=== PATIENT | female | born 1945 | race Caucasian/White ===

== ENCOUNTER 2018-05-13 15:00 | Inpatient (IN) | payer MEDICARE, BC ==
[~2018-05-13] VITALS: Ht 167.6 cm; Wt 79.1 kg
[2018-05-13] MEDS ORDERED: [UNRECOGNIZED DRUG - OTHER] (15:02)
[2018-05-13] MEDS ORDERED: VITS (15:02)
[2018-05-13 15:53] LABS: BASOPHILS # (AUTO) 0.04 x10^3/uL (0-0.1); BASOPHILS % (AUTO) 0 % (0-1); EOSINOPHILS # (AUTO) 0.04 x10^3/uL (0-0.4); EOSINOPHILS % (AUTO) 0 % (1-7); LYMPHOCYTES # (AUTO) 1.41 x10^3/uL (1-3.4); LYMPHOCYTES % (AUTO) 15 % (22-44); MD NO; MEAN CORPUSCULAR HEMOGLOBIN 29.6 pg (27.0-34.8); MEAN CORPUSCULAR HGB CONC 33.3 g/dL (32.4-35.8); MEAN PLATELET VOLUME 8.5 fL (7.4-10.4); MONOCYTES # (AUTO) 0.61 x10^3/uL (0.2-0.8); MONOCYTES % (AUTO) 7 % (2-9); NEUTROPHILS # (AUTO) 7.17 x10^3/uL (1.8-6.8); NEUTROPHILS % (AUTO) 77 % (42-75); PLATELET COUNT 332 x10^3/uL (130-400); RED BLOOD COUNT 4.03 x10^6/uL (3.82-5.3); RED CELL DISTRIBUTION WIDTH 16.8 % (9.6-15.2)
[2018-05-13 15:58] LABS: ALBUMIN 3.6 g/dL (3.4-5.0); ANION GAP 9 mmol/L (5-15); CALCIUM 9.3 mg/dL (8.5-10.1); CHLORIDE 107 mmol/L (98-107)
[2018-05-13 16:01] LABS: ALANINE AMINOTRANSFERASE 18 U/L (12-78); ALKALINE PHOSPHATASE 259 U/L (45-117); BILIRUBIN,TOTAL 0.4 mg/dL (0.2-1.0)
[2018-05-13 16:09] LABS: INTERNATIONAL NORMALIZED RATIO 0.97 (0.93-1.1); PROTHROMBIN TIME 10.3 Seconds (9.6-11.5)
[2018-05-15 06:11] VITALS: BP 138/86
[2018-05-15] MEDS ORDERED: FENTANYL PF 250 MCG/5ML ONE ×2 (07:19→10:00)
[2018-05-15] MEDS ORDERED: MIDAZOLAM 1 MG/ML, 2ML ONE (07:19)
[2018-05-15] MEDS ORDERED: SCOPOLAMINE PATCH, 1.5MG PATCH.TD72 TD ONE ×2 (07:26)
[2018-05-15] MEDS ORDERED: GABAPENTIN 300 MG CAPSULE ONE ×2 (07:27)
[2018-05-15] MEDS ORDERED: EPINEPHRINE 1 MG/ML, 1ML ONE (07:28)
[2018-05-15] MEDS ORDERED: METHYLENE BLUE 10 MG/ML 10ML ONE (07:28)
[2018-05-15] MEDS ORDERED: INDIGO CARMINE 0.8%, 5ML ONE (07:28)
[2018-05-15] MEDS ORDERED: DEXMEDETOMIDINE 200 MCG/2 ML ONE ×2 (07:44→07:54)
[2018-05-15] MEDS ORDERED: CEFOTETAN 2 GM ONE (07:54)
[2018-05-15] MEDS ORDERED: ROCURONIUM 10MG/ML,5ML ONE (09:25)
[2018-05-15] MEDS ORDERED: LIDOCAINE-MPF 2% ,5ML ONE ×2 (09:25→10:29)
[2018-05-15] MEDS ORDERED: DEXAMETHASONE 4 MG/ML, 1ML ONE (09:25)
[2018-05-15] MEDS ORDERED: PROPOFOL 10 MG/ML, 20ML ONE (09:25)
[2018-05-15] MEDS ORDERED: ONDANSETRON 2MG/ML, 2ML ONE (09:25)
[2018-05-15] MEDS ORDERED: PHENYLEPHRINE 10 MG/ML ONE (09:25)
[2018-05-15] MEDS ORDERED: GLYCOPYRROLATE 0.4 MG/2 ML, 2ML ONE (10:54)
[2018-05-15] MEDS ORDERED: NEOSTIGMINE 1 MG/ML, 10ML ONE (10:54)
[2018-05-15] MEDS ORDERED: hydrALAzine 20 MG/ML, 1ML IV PRN (11:30)
[2018-05-15] MEDS ORDERED: OXYcodone 5 MG/5 ML ORAL.SOL UDC PO PRN (11:30)
[2018-05-15] MEDS ORDERED: ALBUMIN HUMAN 5% 250 ML IV ONE (11:30)
[2018-05-15] MEDS ORDERED: ACETAMINOPHEN 325 MG TABLET PO PRN (11:30)
[2018-05-15] MEDS ORDERED: HALOPERIDOL 5 MG/ML IV PRN (11:30)
[2018-05-15] MEDS ORDERED: HYDROmorphone 1 MG/ML, 1ML IV PRN (11:30)
[2018-05-15] MEDS ORDERED: LABETALOL 5MG/ML, 20ML IV PRN (11:30)
[2018-05-15] MEDS ORDERED: PROMETHAZINE 25 MG/ML, 1ML IV PRN (11:30)
[2018-05-15] MEDS ORDERED: FENTANYL PF 100 MCG/2ML IV PRN (11:30)
[2018-05-15] MEDS ORDERED: MEPERIDINE/PF 25MG/0.5ML IVPush PRN (11:30)
[2018-05-15] MEDS ORDERED: ALBUMIN HUMAN 5% 500 ML ONE (12:09)
[2018-05-15 12:14] LABS: MEAN CORPUSCULAR HEMOGLOBIN 29.7 pg (27.0-34.8); MEAN CORPUSCULAR VOLUME 90.1 fL (80-100); MEAN PLATELET VOLUME 8.1 fL (7.4-10.4); PLATELET COUNT 267 x10^3/uL (130-400); RED BLOOD COUNT 3.63 x10^6/uL (3.82-5.3); RED CELL DISTRIBUTION WIDTH 16.6 % (9.6-15.2)
[2018-05-15 12:22] LABS: INTERNATIONAL NORMALIZED RATIO 1.13 (0.93-1.1); PROTHROMBIN TIME 11.9 Seconds (9.6-11.5)
[2018-05-15] MEDS ORDERED: ALBUMIN HUMAN 25% 50 ML ONE (12:24)
[2018-05-15 12:25] LABS: ALBUMIN 2.4 g/dL (3.4-5.0); ANION GAP 8 mmol/L (5-15); CALCIUM 8.2 mg/dL (8.5-10.1); CHLORIDE 107 mmol/L (98-107)
[2018-05-15 12:28] LABS: ALANINE AMINOTRANSFERASE 23 U/L (12-78); ALKALINE PHOSPHATASE 180 U/L (45-117); BILIRUBIN,TOTAL 0.5 mg/dL (0.2-1.0); CREATININE 0.82 mg/dL (0.55-1.02); TOTAL PROTEIN 4.9 g/dL (6.4-8.2)
[2018-05-15 12:51] LABS: MD YES
[2018-05-15 12:57] LABS: <PLATELET ESTIMATE> ADEQUATE; <PLT MORPHOLOGY> NORMAL PLT MORPH; <RBC MORPHOLOGY> NORMAL; EOS#(MANUAL) 0.21 x10^3/uL (0.0-0.4); EOS% (MANUAL) 2 % (1-7); LYMPH#(MANUAL) 0.43 x10^3/uL (1-3.4); LYMPHS% (MANUAL) 4 % (22-44); MONOS#(MANUAL) 1.07 x10^3/uL (0.3-2.7); MONOS% (MANUAL) 10 % (2-9); SEG#(MANUAL) 8.99 x10^3/uL (1.8-6.8); SEGS% (MANUAL) 84 % (42-75)
[2018-05-15 13:30] VITALS: BP 98/64
[2018-05-15] MEDS ORDERED: ONDANSETRON 2MG/ML, 2ML IVPush PRN (14:00)
[2018-05-15] MEDS ORDERED: SODIUM CHLORIDE 0.9%, 500ML IVBOLUS PRN (14:00)
[2018-05-15] MEDS ORDERED: POTASSIUM CHLORIDE 20 MEQ in D5%-0.45% NACL 1,000 ML IV SCH (14:00)
[2018-05-15] MEDS: FAMOTIDINE 20 MG TABLET PO SCH (15:00)
[2018-05-15] MEDS: FAMOTIDINE 20 MG/2 ML IV SCH (16:09)
[2018-05-15 20:51] VITALS: BP 128/78
[2018-05-16] MEDS: POTASSIUM CHLORIDE 20 MEQ in D5%-0.45% NACL 1,000 ML IV SCH ×3 (00:22→12:37)
[2018-05-16] MEDS: ALBUMIN HUMAN 5% 500 ML IV SCH ×2 (00:22→12:36)
[2018-05-16 00:40] VITALS: BP 117/73
[2018-05-16] MEDS: FAMOTIDINE 20 MG TABLET PO SCH ×2 (03:00→14:34)
[2018-05-16] MEDS: FAMOTIDINE 20 MG/2 ML IV SCH ×2 (03:01→14:45)
[2018-05-16 04:59] VITALS: BP 121/77
[2018-05-16 05:24] LABS: CHLORIDE 106 mmol/L (98-107)
[2018-05-16 05:31] LABS: ALBUMIN 3.1 g/dL (3.4-5.0); ANION GAP 10 mmol/L (5-15); CALCIUM 7.5 mg/dL (8.5-10.1); CREATININE 0.88 mg/dL (0.55-1.02)
[2018-05-16 06:05] LABS: BASOPHILS # (AUTO) 0.03 x10^3/uL (0-0.1); BASOPHILS % (AUTO) 0 % (0-1); EOSINOPHILS % (AUTO) 0 % (1-7); LYMPHOCYTES # (AUTO) 0.89 x10^3/uL (1-3.4); LYMPHOCYTES % (AUTO) 9 % (22-44); MD NO; MEAN CORPUSCULAR HEMOGLOBIN 30.6 pg (27.0-34.8); MEAN PLATELET VOLUME 8.7 fL (7.4-10.4); MONOCYTES # (AUTO) 0.73 x10^3/uL (0.2-0.8); MONOCYTES % (AUTO) 7 % (2-9); NEUTROPHILS # (AUTO) 8.52 x10^3/uL (1.8-6.8); NEUTROPHILS % (AUTO) 84 % (42-75); PLATELET COUNT 275 x10^3/uL (130-400); RED BLOOD COUNT 3.18 x10^6/uL (3.82-5.3); RED CELL DISTRIBUTION WIDTH 16.4 % (9.6-15.2)
[2018-05-16 07:25] VITALS: BP 128/77
[2018-05-16 12:39] VITALS: BP 109/69
[2018-05-16] MEDS ORDERED: POTASSIUM CHLORIDE 20 MEQ in D5%-0.45% NACL 1,000 ML IV SCH (16:00)
[2018-05-16 20:20] VITALS: BP 123/73
[2018-05-16] MEDS: D5%-0.45NACL+KCL 20MEQ 1,000 ML IV SCH (21:56)
[2018-05-17 00:17] VITALS: BP 116/68
[2018-05-17 01:01] LABS: MEAN CORPUSCULAR HEMOGLOBIN 30.2 pg (27.0-34.8); MEAN CORPUSCULAR HGB CONC 33.6 g/dL (32.4-35.8); MEAN CORPUSCULAR VOLUME 89.8 fL (80-100); MEAN PLATELET VOLUME 7.7 fL (7.4-10.4); PLATELET COUNT 191 x10^3/uL (130-400); RED CELL DISTRIBUTION WIDTH 16.5 % (9.6-15.2)
[2018-05-17 01:51] LABS: BASOPHILS % (AUTO) 0 % (0-1); EOSINOPHILS # (AUTO) 0.01 x10^3/uL (0-0.4); EOSINOPHILS % (AUTO) 0 % (1-7); LYMPHOCYTES # (AUTO) 0.75 x10^3/uL (1-3.4); LYMPHOCYTES % (AUTO) 8 % (22-44); MD SCAN; MONOCYTES # (AUTO) 0.58 x10^3/uL (0.2-0.8); MONOCYTES % (AUTO) 6 % (2-9); NEUTROPHILS # (AUTO) 8.29 x10^3/uL (1.8-6.8); NEUTROPHILS % (AUTO) 86 % (42-75)
[2018-05-17] MEDS: FAMOTIDINE 20 MG TABLET PO SCH ×2 (03:00→15:00)
[2018-05-17] MEDS: FAMOTIDINE 20 MG/2 ML IV SCH ×2 (03:26→15:25)
[2018-05-17 04:18] VITALS: BP 115/67
[2018-05-17 05:58] LABS: MEAN CORPUSCULAR HGB CONC 33.2 g/dL (32.4-35.8); MEAN CORPUSCULAR VOLUME 90.4 fL (80-100); MEAN PLATELET VOLUME 8.2 fL (7.4-10.4); PLATELET COUNT 186 x10^3/uL (130-400); RED BLOOD COUNT 2.48 x10^6/uL (3.82-5.3); RED CELL DISTRIBUTION WIDTH 16.8 % (9.6-15.2)
[2018-05-17 06:00] LABS: CALCIUM 8.4 mg/dL (8.5-10.1); CHLORIDE 106 mmol/L (98-107)
[2018-05-17 06:03] LABS: ANION GAP 5 mmol/L (5-15); CREATININE 0.63 mg/dL (0.55-1.02)
[2018-05-17] MEDS: D5%-0.45NACL+KCL 20MEQ 1,000 ML IV SCH ×3 (06:05→22:49)
[2018-05-17 06:40] LABS: BASOPHILS % (AUTO) 0 % (0-1); EOSINOPHILS # (AUTO) 0.03 x10^3/uL (0-0.4); EOSINOPHILS % (AUTO) 0 % (1-7); LYMPHOCYTES % (AUTO) 6 % (22-44); MD SCAN; MONOCYTES # (AUTO) 0.69 x10^3/uL (0.2-0.8); MONOCYTES % (AUTO) 7 % (2-9); NEUTROPHILS # (AUTO) 8.49 x10^3/uL (1.8-6.8); NEUTROPHILS % (AUTO) 87 % (42-75)
[2018-05-17 07:35] VITALS: BP 120/69
[2018-05-17 14:48] VITALS: BP 120/69
[2018-05-17 19:11] VITALS: BP 128/64
[2018-05-18 01:32] VITALS: BP 127/77
[2018-05-18] MEDS: FAMOTIDINE 20 MG TABLET PO SCH ×2 (03:00→14:19)
[2018-05-18] MEDS: FAMOTIDINE 20 MG/2 ML IV SCH ×2 (03:00→14:18)
[2018-05-18 05:23] LABS: BASOPHILS # (AUTO) 0.01 x10^3/uL (0-0.1); BASOPHILS % (AUTO) 0 % (0-1); EOSINOPHILS % (AUTO) 1 % (1-7); LYMPHOCYTES # (AUTO) 0.57 x10^3/uL (1-3.4); LYMPHOCYTES % (AUTO) 5 % (22-44); MD NO; MEAN CORPUSCULAR HEMOGLOBIN 29.3 pg (27.0-34.8); MEAN CORPUSCULAR HGB CONC 32.7 g/dL (32.4-35.8); MEAN CORPUSCULAR VOLUME 89.6 fL (80-100); MEAN PLATELET VOLUME 8.8 fL (7.4-10.4); MONOCYTES # (AUTO) 0.65 x10^3/uL (0.2-0.8); MONOCYTES % (AUTO) 6 % (2-9); NEUTROPHILS % (AUTO) 88 % (42-75); PLATELET COUNT 185 x10^3/uL (130-400); RED CELL DISTRIBUTION WIDTH 16.2 % (9.6-15.2)
[2018-05-18 05:43] LABS: CHLORIDE 104 mmol/L (98-107)
[2018-05-18 05:48] LABS: ANION GAP 6 mmol/L (5-15); CALCIUM 8.1 mg/dL (8.5-10.1); CREATININE 0.46 mg/dL (0.55-1.02)
[2018-05-18] MEDS: D5%-0.45NACL+KCL 20MEQ 1,000 ML IV SCH ×3 (06:42→23:24)
[2018-05-18 08:50] VITALS: BP 118/74
[2018-05-18 15:12] VITALS: BP 118/74
[2018-05-18 19:48] VITALS: BP 135/79
[2018-05-19 02:27] VITALS: BP 150/77
[2018-05-19] MEDS: FAMOTIDINE 20 MG TABLET PO SCH ×2 (03:00→15:00)
[2018-05-19] MEDS: FAMOTIDINE 20 MG/2 ML IV SCH ×2 (03:16→15:00)
[2018-05-19 04:50] LABS: MEAN CORPUSCULAR HEMOGLOBIN 29.7 pg (27.0-34.8); MEAN CORPUSCULAR HGB CONC 33.2 g/dL (32.4-35.8); MEAN CORPUSCULAR VOLUME 89.5 fL (80-100); MEAN PLATELET VOLUME 8.3 fL (7.4-10.4); PLATELET COUNT 233 x10^3/uL (130-400); RED BLOOD COUNT 2.48 x10^6/uL (3.82-5.3); RED CELL DISTRIBUTION WIDTH 16.3 % (9.6-15.2)
[2018-05-19 05:06] LABS: ALANINE AMINOTRANSFERASE 15 U/L (12-78); ALBUMIN 2.6 g/dL (3.4-5.0); ANION GAP 7 mmol/L (5-15); CALCIUM 7.8 mg/dL (8.5-10.1); CHLORIDE 104 mmol/L (98-107)
[2018-05-19 05:08] LABS: ALKALINE PHOSPHATASE 101 U/L (45-117); BILIRUBIN,TOTAL 0.9 mg/dL (0.2-1.0); TOTAL PROTEIN 5.2 g/dL (6.4-8.2)
[2018-05-19 05:24] LABS: BASOPHILS # (AUTO) 0.01 x10^3/uL (0-0.1); BASOPHILS % (AUTO) 0 % (0-1); EOSINOPHILS # (AUTO) 0.15 x10^3/uL (0-0.4); EOSINOPHILS % (AUTO) 2 % (1-7); LYMPHOCYTES # (AUTO) 0.49 x10^3/uL (1-3.4); LYMPHOCYTES % (AUTO) 6 % (22-44); MD SCAN; MONOCYTES # (AUTO) 0.61 x10^3/uL (0.2-0.8); MONOCYTES % (AUTO) 7 % (2-9); NEUTROPHILS # (AUTO) 7.33 x10^3/uL (1.8-6.8); NEUTROPHILS % (AUTO) 85 % (42-75)
[2018-05-19 07:26] VITALS: BP 122/75
[2018-05-19] MEDS: D5%-0.45NACL+KCL 20MEQ 1,000 ML IV SCH ×3 (11:33→23:43)
[2018-05-19 12:06] VITALS: BP 147/79
[2018-05-19] MEDS ORDERED: OXYcodone/APAP 7.5/325MG TABLET PO PRN (14:00)
[2018-05-19 20:12] VITALS: BP 137/64
[2018-05-20 01:13] VITALS: BP 134/66
[2018-05-20] MEDS: FAMOTIDINE 20 MG/2 ML IV SCH ×2 (03:00→14:15)
[2018-05-20] MEDS: FAMOTIDINE 20 MG TABLET PO SCH ×2 (03:00→14:23)
[2018-05-20 08:00] VITALS: BP 119/76
[2018-05-20] MEDS: D5%-0.45NACL+KCL 20MEQ 1,000 ML IV SCH (08:21)
[2018-05-20 09:29] LABS: BASOPHILS # (AUTO) 0.01 x10^3/uL (0-0.1); BASOPHILS % (AUTO) 0 % (0-1); EOSINOPHILS # (AUTO) 0.06 x10^3/uL (0-0.4); EOSINOPHILS % (AUTO) 1 % (1-7); LYMPHOCYTES # (AUTO) 0.74 x10^3/uL (1-3.4); LYMPHOCYTES % (AUTO) 8 % (22-44); MD NO; MEAN CORPUSCULAR HEMOGLOBIN 29.2 pg (27.0-34.8); MEAN CORPUSCULAR HGB CONC 32.9 g/dL (32.4-35.8); MEAN CORPUSCULAR VOLUME 88.7 fL (80-100); MONOCYTES # (AUTO) 0.68 x10^3/uL (0.2-0.8); MONOCYTES % (AUTO) 7 % (2-9); NEUTROPHILS # (AUTO) 8.16 x10^3/uL (1.8-6.8); NEUTROPHILS % (AUTO) 85 % (42-75); PLATELET COUNT 330 x10^3/uL (130-400); RED BLOOD COUNT 2.93 x10^6/uL (3.82-5.3); RED CELL DISTRIBUTION WIDTH 16.1 % (9.6-15.2)
[2018-05-20 09:39] LABS: ALANINE AMINOTRANSFERASE 26 U/L (12-78); ALBUMIN 2.5 g/dL (3.4-5.0); ANION GAP 6 mmol/L (5-15); CALCIUM 8.7 mg/dL (8.5-10.1); CHLORIDE 103 mmol/L (98-107); CREATININE 0.47 mg/dL (0.55-1.02)
[2018-05-20 09:41] LABS: ALKALINE PHOSPHATASE 131 U/L (45-117); BILIRUBIN,TOTAL 0.9 mg/dL (0.2-1.0); TOTAL PROTEIN 5.3 g/dL (6.4-8.2)
[2018-05-20] MEDS ORDERED: D5%-0.45NACL+KCL 20MEQ 1,000 ML IV SCH (10:30)
[2018-05-20] MEDS: CEPHALEXIN 500 MG CAPSULE PO SCH ×3 (11:18→20:58)
[2018-05-20 13:00] VITALS: BP 136/78
[2018-05-20 18:33] VITALS: BP 138/84
[2018-05-21 00:37] VITALS: BP 129/73
[2018-05-21] MEDS: FAMOTIDINE 20 MG TABLET PO SCH ×2 (03:16→15:05)
[2018-05-21 04:57] LABS: BASOPHILS # (AUTO) 0.01 x10^3/uL (0-0.1); BASOPHILS % (AUTO) 0 % (0-1); EOSINOPHILS # (AUTO) 0.22 x10^3/uL (0-0.4); EOSINOPHILS % (AUTO) 2 % (1-7); LYMPHOCYTES # (AUTO) 0.69 x10^3/uL (1-3.4); LYMPHOCYTES % (AUTO) 7 % (22-44); MD NO; MEAN CORPUSCULAR HEMOGLOBIN 29.3 pg (27.0-34.8); MEAN CORPUSCULAR HGB CONC 33.1 g/dL (32.4-35.8); MEAN CORPUSCULAR VOLUME 88.7 fL (80-100); MEAN PLATELET VOLUME 8.2 fL (7.4-10.4); MONOCYTES # (AUTO) 0.79 x10^3/uL (0.2-0.8); MONOCYTES % (AUTO) 7 % (2-9); NEUTROPHILS # (AUTO) 8.91 x10^3/uL (1.8-6.8); NEUTROPHILS % (AUTO) 84 % (42-75); PLATELET COUNT 341 x10^3/uL (130-400); RED BLOOD COUNT 2.92 x10^6/uL (3.82-5.3); RED CELL DISTRIBUTION WIDTH 16.2 % (9.6-15.2)
[2018-05-21] MEDS: CEPHALEXIN 500 MG CAPSULE PO SCH ×4 (06:00→20:37)
[2018-05-21 07:15] VITALS: BP 133/83
[2018-05-21 11:58] LABS: CLOSTRIDIUM DIFFICILE TOXIN POSITIVE (Negative)
[2018-05-21 12:00] LABS: CLOSTRIDIUM DIFFICILE ANTIGEN POSITIVE
[2018-05-21 13:30] VITALS: BP 127/76
[2018-05-21] MEDS: metroNIDAZOLE 500 MG TABLET PO SCH ×2 (15:02→23:09)
[2018-05-21 21:46] VITALS: BP 146/79
[2018-05-22 02:28] VITALS: BP 151/85
[2018-05-22] MEDS: FAMOTIDINE 20 MG TABLET PO SCH ×2 (03:18→15:36)
[2018-05-22 05:47] LABS: ANION GAP 9 mmol/L (5-15); CALCIUM 8.6 mg/dL (8.5-10.1); CHLORIDE 103 mmol/L (98-107)
[2018-05-22 06:20] LABS: BASOPHILS # (AUTO) 0.03 x10^3/uL (0-0.1); BASOPHILS % (AUTO) 0 % (0-1); EOSINOPHILS # (AUTO) 0.14 x10^3/uL (0-0.4); EOSINOPHILS % (AUTO) 1 % (1-7); LYMPHOCYTES % (AUTO) 7 % (22-44); MD NO; MEAN CORPUSCULAR HEMOGLOBIN 30.5 pg (27.0-34.8); MEAN CORPUSCULAR HGB CONC 34.3 g/dL (32.4-35.8); MEAN PLATELET VOLUME 7.9 fL (7.4-10.4); MONOCYTES # (AUTO) 1.11 x10^3/uL (0.2-0.8); MONOCYTES % (AUTO) 8 % (2-9); NEUTROPHILS # (AUTO) 12.21 x10^3/uL (1.8-6.8); NEUTROPHILS % (AUTO) 84 % (42-75); PLATELET COUNT 438 x10^3/uL (130-400); RED BLOOD COUNT 3.07 x10^6/uL (3.82-5.3); RED CELL DISTRIBUTION WIDTH 16.4 % (9.6-15.2)
[2018-05-22] MEDS: CEPHALEXIN 500 MG CAPSULE PO SCH (06:30)
[2018-05-22] MEDS: metroNIDAZOLE 500 MG TABLET PO SCH ×3 (06:30→23:31)
[2018-05-22 07:20] VITALS: BP 131/81
[2018-05-22] MEDS: POTASSIUM CHLORIDE 20 MEQ TAB.ER.PRT PO SCH ×2 (09:41→23:31)
[2018-05-22 13:27] VITALS: BP 134/80
[2018-05-22 20:46] VITALS: BP 125/63
[2018-05-23 03:13] VITALS: BP 135/69
[2018-05-23 05:48] LABS: ANION GAP 11 mmol/L (5-15); CALCIUM 8.5 mg/dL (8.5-10.1); CHLORIDE 102 mmol/L (98-107); CREATININE 0.59 mg/dL (0.55-1.02)
[2018-05-23 05:49] LABS: BASOPHILS # (AUTO) 0.03 x10^3/uL (0-0.1); BASOPHILS % (AUTO) 0 % (0-1); EOSINOPHILS # (AUTO) 0.14 x10^3/uL (0-0.4); EOSINOPHILS % (AUTO) 1 % (1-7); LYMPHOCYTES # (AUTO) 0.89 x10^3/uL (1-3.4); LYMPHOCYTES % (AUTO) 9 % (22-44); MD NO; MEAN CORPUSCULAR HEMOGLOBIN 29.7 pg (27.0-34.8); MEAN CORPUSCULAR HGB CONC 33.7 g/dL (32.4-35.8); MEAN PLATELET VOLUME 7.9 fL (7.4-10.4); MONOCYTES # (AUTO) 0.96 x10^3/uL (0.2-0.8); MONOCYTES % (AUTO) 9 % (2-9); NEUTROPHILS # (AUTO) 8.37 x10^3/uL (1.8-6.8); NEUTROPHILS % (AUTO) 81 % (42-75); PLATELET COUNT 418 x10^3/uL (130-400); RED BLOOD COUNT 2.84 x10^6/uL (3.82-5.3); RED CELL DISTRIBUTION WIDTH 16.3 % (9.6-15.2)
[2018-05-23] MEDS: FAMOTIDINE 20 MG TABLET PO SCH ×2 (06:48→18:18)
[2018-05-23] MEDS: metroNIDAZOLE 500 MG TABLET PO SCH ×3 (06:48→23:04)
[2018-05-23 07:01] VITALS: BP 145/79
[2018-05-23] MEDS: POTASSIUM CHLORIDE 20 MEQ TAB.ER.PRT PO SCH ×2 (08:31→20:41)
[2018-05-23] MEDS ORDERED: POTASSIUM CHLORIDE 20 MEQ in SODIUM CHLORIDE 0.9% 250 ML IV ONE (09:00)
[2018-05-23] MEDS ORDERED: MAGNESIUM SULFATE PMX 2GM/50ML 50 ML IV ONE (09:00)
[2018-05-23] MEDS: D5%-0.45NACL+KCL 20MEQ 1,000 ML IV SCH (13:41)
[2018-05-23 13:54] VITALS: BP 134/71
[2018-05-23 20:30] VITALS: BP 135/75
[2018-05-24 03:23] VITALS: BP 127/74
[2018-05-24] MEDS: D5%-0.45NACL+KCL 20MEQ 1,000 ML IV SCH ×3 (03:46→22:54)
[2018-05-24 04:48] LABS: BASOPHILS # (AUTO) 0.05 x10^3/uL (0-0.1); BASOPHILS % (AUTO) 0 % (0-1); EOSINOPHILS # (AUTO) 0.23 x10^3/uL (0-0.4); EOSINOPHILS % (AUTO) 2 % (1-7); LYMPHOCYTES # (AUTO) 0.84 x10^3/uL (1-3.4); LYMPHOCYTES % (AUTO) 7 % (22-44); MD NO; MEAN CORPUSCULAR HEMOGLOBIN 29.3 pg (27.0-34.8); MEAN CORPUSCULAR HGB CONC 32.7 g/dL (32.4-35.8); MEAN CORPUSCULAR VOLUME 89.6 fL (80-100); MEAN PLATELET VOLUME 7.5 fL (7.4-10.4); MONOCYTES # (AUTO) 0.96 x10^3/uL (0.2-0.8); MONOCYTES % (AUTO) 8 % (2-9); NEUTROPHILS # (AUTO) 9.52 x10^3/uL (1.8-6.8); NEUTROPHILS % (AUTO) 82 % (42-75); PLATELET COUNT 428 x10^3/uL (130-400); RED BLOOD COUNT 2.83 x10^6/uL (3.82-5.3); RED CELL DISTRIBUTION WIDTH 16.5 % (9.6-15.2)
[2018-05-24 05:01] LABS: CHLORIDE 107 mmol/L (98-107)
[2018-05-24 05:05] LABS: ANION GAP 8 mmol/L (5-15); CALCIUM 8.1 mg/dL (8.5-10.1); CREATININE 0.49 mg/dL (0.55-1.02)
[2018-05-24] MEDS: metroNIDAZOLE 500 MG TABLET PO SCH ×3 (06:32→22:55)
[2018-05-24] MEDS: FAMOTIDINE 20 MG TABLET PO SCH ×2 (06:32→18:53)
[2018-05-24 08:20] VITALS: BP 123/73
[2018-05-24] MEDS: POTASSIUM CHLORIDE 20 MEQ TAB.ER.PRT PO SCH ×2 (08:51→20:38)
[2018-05-24 12:35] VITALS: BP 127/88
[2018-05-24 20:06] VITALS: BP 127/79
[2018-05-25 04:07] VITALS: BP 127/75
[2018-05-25 05:08] LABS: BASOPHILS # (AUTO) 0.04 x10^3/uL (0-0.1); BASOPHILS % (AUTO) 0 % (0-1); EOSINOPHILS # (AUTO) 0.27 x10^3/uL (0-0.4); EOSINOPHILS % (AUTO) 2 % (1-7); LYMPHOCYTES % (AUTO) 7 % (22-44); MD NO; MEAN CORPUSCULAR HEMOGLOBIN 29.6 pg (27.0-34.8); MEAN CORPUSCULAR HGB CONC 33.3 g/dL (32.4-35.8); MEAN CORPUSCULAR VOLUME 89.1 fL (80-100); MEAN PLATELET VOLUME 7.7 fL (7.4-10.4); MONOCYTES # (AUTO) 0.84 x10^3/uL (0.2-0.8); MONOCYTES % (AUTO) 7 % (2-9); NEUTROPHILS # (AUTO) 10.77 x10^3/uL (1.8-6.8); NEUTROPHILS % (AUTO) 84 % (42-75); PLATELET COUNT 437 x10^3/uL (130-400); RED BLOOD COUNT 2.74 x10^6/uL (3.82-5.3); RED CELL DISTRIBUTION WIDTH 16.7 % (9.6-15.2)
[2018-05-25 05:18] LABS: ANION GAP 9 mmol/L (5-15); CALCIUM 7.9 mg/dL (8.5-10.1); CHLORIDE 109 mmol/L (98-107); CREATININE 0.49 mg/dL (0.55-1.02)
[2018-05-25] MEDS: metroNIDAZOLE 500 MG TABLET PO SCH (06:15)
[2018-05-25] MEDS: FAMOTIDINE 20 MG TABLET PO SCH ×2 (06:15→18:05)
[2018-05-25 06:55] VITALS: BP 117/74
[2018-05-25] MEDS: POTASSIUM CHLORIDE 20 MEQ TAB.ER.PRT PO SCH ×2 (08:40→21:10)
[2018-05-25] MEDS: D5%-0.45NACL+KCL 20MEQ 1,000 ML IV SCH ×2 (09:56→21:10)
[2018-05-25] MEDS: VANCOMYCIN 50 MG/ML ORAL SUSP PO SCH ×2 (11:23→17:45)
[2018-05-25 12:28] VITALS: BP 117/71
[2018-05-25 20:00] VITALS: BP 123/81
[2018-05-26] MEDS: VANCOMYCIN 50 MG/ML ORAL SUSP PO SCH ×4 (00:17→17:59)
[2018-05-26 02:00] VITALS: BP 121/62
[2018-05-26] MEDS: D5%-0.45NACL+KCL 20MEQ 1,000 ML IV SCH ×2 (06:36→17:59)
[2018-05-26] MEDS: FAMOTIDINE 20 MG TABLET PO SCH ×2 (06:41→17:59)
[2018-05-26 07:16] VITALS: BP 121/77
[2018-05-26 07:57] LABS: BASOPHILS # (AUTO) 0.02 x10^3/uL (0-0.1); BASOPHILS % (AUTO) 0 % (0-1); EOSINOPHILS # (AUTO) 0.21 x10^3/uL (0-0.4); EOSINOPHILS % (AUTO) 2 % (1-7); LYMPHOCYTES # (AUTO) 0.91 x10^3/uL (1-3.4); LYMPHOCYTES % (AUTO) 7 % (22-44); MD NO; MEAN CORPUSCULAR HEMOGLOBIN 29.4 pg (27.0-34.8); MEAN CORPUSCULAR VOLUME 89.1 fL (80-100); MEAN PLATELET VOLUME 7.1 fL (7.4-10.4); MONOCYTES % (AUTO) 5 % (2-9); NEUTROPHILS # (AUTO) 11.64 x10^3/uL (1.8-6.8); NEUTROPHILS % (AUTO) 86 % (42-75); PLATELET COUNT 474 x10^3/uL (130-400); RED BLOOD COUNT 2.89 x10^6/uL (3.82-5.3); RED CELL DISTRIBUTION WIDTH 16.7 % (9.6-15.2)
[2018-05-26 08:09] LABS: ALBUMIN 2.6 g/dL (3.4-5.0); ANION GAP 9 mmol/L (5-15); CALCIUM 7.8 mg/dL (8.5-10.1); CHLORIDE 110 mmol/L (98-107)
[2018-05-26 08:12] LABS: ALANINE AMINOTRANSFERASE 17 U/L (12-78); ALKALINE PHOSPHATASE 75 U/L (45-117); BILIRUBIN,TOTAL 0.3 mg/dL (0.2-1.0); CREATININE 0.63 mg/dL (0.55-1.02)
[2018-05-26] MEDS: POTASSIUM CHLORIDE 20 MEQ TAB.ER.PRT PO SCH ×2 (08:49→21:27)
[2018-05-26 13:40] VITALS: BP 128/85
[2018-05-26 20:01] VITALS: BP 125/81
[2018-05-27] MEDS: VANCOMYCIN 50 MG/ML ORAL SUSP PO SCH ×5 (00:34→23:59)
[2018-05-27] MEDS: D5%-0.45NACL+KCL 20MEQ 1,000 ML IV SCH ×2 (03:00→14:47)
[2018-05-27 04:00] VITALS: BP 116/73
[2018-05-27 05:35] LABS: BASOPHILS # (AUTO) 0.03 x10^3/uL (0-0.1); BASOPHILS % (AUTO) 0 % (0-1); EOSINOPHILS # (AUTO) 0.22 x10^3/uL (0-0.4); EOSINOPHILS % (AUTO) 2 % (1-7); LYMPHOCYTES # (AUTO) 1.02 x10^3/uL (1-3.4); LYMPHOCYTES % (AUTO) 8 % (22-44); MD NO; MEAN CORPUSCULAR HEMOGLOBIN 29.3 pg (27.0-34.8); MEAN CORPUSCULAR HGB CONC 32.7 g/dL (32.4-35.8); MEAN CORPUSCULAR VOLUME 89.6 fL (80-100); MEAN PLATELET VOLUME 7.7 fL (7.4-10.4); MONOCYTES # (AUTO) 0.76 x10^3/uL (0.2-0.8); MONOCYTES % (AUTO) 6 % (2-9); NEUTROPHILS # (AUTO) 11.33 x10^3/uL (1.8-6.8); NEUTROPHILS % (AUTO) 85 % (42-75); PLATELET COUNT 474 x10^3/uL (130-400); RED BLOOD COUNT 2.97 x10^6/uL (3.82-5.3); RED CELL DISTRIBUTION WIDTH 16.9 % (9.6-15.2)
[2018-05-27 05:44] LABS: CHLORIDE 110 mmol/L (98-107)
[2018-05-27 05:49] LABS: ANION GAP 9 mmol/L (5-15); CALCIUM 8.6 mg/dL (8.5-10.1); CREATININE 0.53 mg/dL (0.55-1.02)
[2018-05-27] MEDS: FAMOTIDINE 20 MG TABLET PO SCH ×2 (06:11→18:49)
[2018-05-27 08:19] VITALS: BP 140/73
[2018-05-27] MEDS: POTASSIUM CHLORIDE 20 MEQ TAB.ER.PRT PO SCH ×2 (08:39→21:00)
[2018-05-27 09:28] LABS: ALANINE AMINOTRANSFERASE 20 U/L (12-78); ANION GAP 9 mmol/L (5-15); CALCIUM 8.8 mg/dL (8.5-10.1); CHLORIDE 109 mmol/L (98-107)
[2018-05-27 09:30] LABS: ALKALINE PHOSPHATASE 84 U/L (45-117); BILIRUBIN,TOTAL 0.3 mg/dL (0.2-1.0)
[2018-05-27 09:32] LABS: BASOPHILS # (AUTO) 0.04 x10^3/uL (0-0.1); BASOPHILS % (AUTO) 0 % (0-1); EOSINOPHILS # (AUTO) 0.19 x10^3/uL (0-0.4); EOSINOPHILS % (AUTO) 1 % (1-7); LYMPHOCYTES # (AUTO) 1.13 x10^3/uL (1-3.4); LYMPHOCYTES % (AUTO) 7 % (22-44); MD NO; MEAN CORPUSCULAR HEMOGLOBIN 29.2 pg (27.0-34.8); MEAN CORPUSCULAR HGB CONC 32.7 g/dL (32.4-35.8); MEAN CORPUSCULAR VOLUME 89.1 fL (80-100); MEAN PLATELET VOLUME 7.6 fL (7.4-10.4); MONOCYTES # (AUTO) 0.77 x10^3/uL (0.2-0.8); MONOCYTES % (AUTO) 5 % (2-9); NEUTROPHILS # (AUTO) 13.18 x10^3/uL (1.8-6.8); NEUTROPHILS % (AUTO) 86 % (42-75); PLATELET COUNT 579 x10^3/uL (130-400); RED BLOOD COUNT 3.27 x10^6/uL (3.82-5.3); RED CELL DISTRIBUTION WIDTH 16.9 % (9.6-15.2)
[2018-05-27 14:49] VITALS: BP 134/74
[2018-05-27 20:49] VITALS: BP 123/80
[2018-05-28 01:06] VITALS: BP 126/78
[2018-05-28] MEDS: D5%-0.45NACL+KCL 20MEQ 1,000 ML IV SCH ×2 (01:36→14:28)
[2018-05-28] MEDS: VANCOMYCIN 50 MG/ML ORAL SUSP PO SCH ×3 (05:55→17:45)
[2018-05-28] MEDS: FAMOTIDINE 20 MG TABLET PO SCH ×2 (06:21→19:00)
[2018-05-28 07:57] VITALS: BP 114/69
[2018-05-28] MEDS: POTASSIUM CHLORIDE 20 MEQ TAB.ER.PRT PO SCH ×2 (08:41→21:00)
[2018-05-28 10:28] LABS: MICROSCOPIC NOT IND
[2018-05-28 10:50] LABS: CULTURE INDICATED? NO
[2018-05-28] MEDS: CIPROFLOXACIN/PMX 400MG/200ML 200 ML IVPB SCH ×2 (12:53→22:54)
[2018-05-28 16:03] VITALS: BP 126/78
[2018-05-28 18:48] VITALS: BP 129/78
[2018-05-29] MEDS: VANCOMYCIN 50 MG/ML ORAL SUSP PO SCH ×3 (00:04→12:33)
[2018-05-29 00:33] VITALS: BP 139/65
[2018-05-29] MEDS: D5%-0.45NACL+KCL 20MEQ 1,000 ML IV SCH (04:22)
[2018-05-29 05:45] LABS: ANION GAP 8 mmol/L (5-15); CALCIUM 8.5 mg/dL (8.5-10.1); CHLORIDE 107 mmol/L (98-107)
[2018-05-29 05:47] LABS: BASOPHILS # (AUTO) 0.07 x10^3/uL (0-0.1); BASOPHILS % (AUTO) 1 % (0-1); CREATININE 0.51 mg/dL (0.55-1.02); EOSINOPHILS % (AUTO) 2 % (1-7); LYMPHOCYTES # (AUTO) 0.84 x10^3/uL (1-3.4); LYMPHOCYTES % (AUTO) 7 % (22-44); MD NO; MEAN CORPUSCULAR HEMOGLOBIN 29.9 pg (27.0-34.8); MEAN CORPUSCULAR HGB CONC 33.5 g/dL (32.4-35.8); MEAN CORPUSCULAR VOLUME 89.5 fL (80-100); MEAN PLATELET VOLUME 7.6 fL (7.4-10.4); MONOCYTES # (AUTO) 0.69 x10^3/uL (0.2-0.8); MONOCYTES % (AUTO) 6 % (2-9); NEUTROPHILS % (AUTO) 85 % (42-75); PLATELET COUNT 435 x10^3/uL (130-400); RED BLOOD COUNT 3.01 x10^6/uL (3.82-5.3); RED CELL DISTRIBUTION WIDTH 16.9 % (9.6-15.2)
[2018-05-29] MEDS: FAMOTIDINE 20 MG TABLET PO SCH (06:09)
[2018-05-29] MEDS: POTASSIUM CHLORIDE 20 MEQ TAB.ER.PRT PO SCH (08:22)
[2018-05-29 09:35] VITALS: BP 128/78
[2018-05-29 13:56] VITALS: BP 126/79
[2018-05-29] MEDS ORDERED: [UNRECOGNIZED DRUG - CODE] PO (14:20)
[2018-05-29] MEDS ORDERED: [UNRECOGNIZED DRUG - CODE] PO-COUM (14:24)
[2018-05-29 15:30] VITALS: BP 127/83
== END 2018-05-29 15:50 | disposition home or self-care (01) | DRG 329 ==
LOC: ORIP 05-15 05:26 → 4NOR 05-15 05:39 → EDSTATUS 05-15 07:30
PROVIDERS: ADMIT Specialist; ATTEND Specialist
PROC: 0DBN0ZZ Excision of Sigmoid Colon, Open Approach (ICD-10-PCS; 2018-05-15)
PROC: 0DTU0ZZ Resection of Omentum, Open Approach (ICD-10-PCS; 2018-05-15)
PROC: 0UT90ZZ Resection of Uterus, Open Approach (ICD-10-PCS; 2018-05-15)
PROC: 0UT50ZZ Resection of Right Fallopian Tube, Open Approach (ICD-10-PCS; 2018-05-15)
PROC: 0UT00ZZ Resection of Right Ovary, Open Approach (ICD-10-PCS; 2018-05-15)
PROC: 0DTJ0ZZ Resection of Appendix, Open Approach (ICD-10-PCS; principal; 2018-05-15 07:30)
DX: C48.2 Malignant neoplasm of peritoneum, unspecified (principal); R65.11 Systemic inflammatory response syndrome (SIRS) of non-infectious origin with acute organ dysfunction; C18.7 Malignant neoplasm of sigmoid colon; K56.7 Ileus, unspecified; C56.9 Malignant neoplasm of unspecified ovary; E44.0 Moderate protein-calorie malnutrition; A04.72 Enterocolitis due to Clostridium difficile, not specified as recurrent; L03.90 Cellulitis, unspecified; D64.9 Anemia, unspecified; E87.6 Hypokalemia; E83.42 Hypomagnesemia; Z68.28 Body mass index [BMI] 28.0-28.9, adult; C54.1 Malignant neoplasm of endometrium
CPT/HCPCS: 36415; 71046; 74018; 80048; 80053; 81003; 82040; 82570; 83735; 85025; 85610; 85730; 86304; 86850; 86900; 86923; 87040; 87324; 88112; 88302; 88305; 88307; 88341; 88342; 93005; C1729; G0378; J0171; J0744; J1100; J2250; J2270; J2405; J2704; J2710; J3010; J3370; J3480; J3490; P9041; P9045; P9047; C1765; J2370; J3475; J7050; Q9968